=== PATIENT | male | born 1970 | race Caucasian/White ===

== ENCOUNTER 2018-08-11 11:37 | Emergency (ER) | payer MEDICAID ==
[~2018-08-11] VITALS: Wt 100.0 kg
[2018-08-11 11:40] VITALS: BP 159/89; PULSE 90; RESP 16
[2018-08-11] MEDS ORDERED: KETOROLAC 60 MG INJ IM STA (11:51)
[2018-08-11] MEDS ORDERED: PROMETHAZINE/CODEINE 5ML CUP PO ONE (12:00)
[2018-08-11] MEDS ORDERED: D-ME473S2 PO (12:33)
[2018-08-11] MEDS ORDERED: OSEL75CA23 PO (12:33)
[2018-08-11] MEDS ORDERED: IBUP-1542 PO (12:33)
--- NOTE | 2018-08-11 12:36 | ERD ---
ER Documentation Chief Complaint Chief Complaint BODY ACHES,CHILLS ,COUGH X 4 DAYS HPI This 48-year-old male presents with 4-day history of cough, fever and body aches. He has no vomiting, abdominal pain, chest pain. ROS All systems reviewed and are negative except as per history of present illness. Medications Home Meds Active Scripts Oseltamivir Phosphate* (Tamiflu*) 75 Mg Capsule, 75 MG PO BID for 5 Days, CAP Prov:CHAYO BARRON MD 08/11/18 Dextromethorphan Hb-Promethazine Hcl* (Promethazine DM* Syrup) 473 Ml Syrup, 5 ML PO Q6 PRN for COUGH for 5 Days, ML Prov:CHAYO BARRON MD 08/11/18 Ibuprofen* (Motrin*) 600 Mg Tab, 600 MG PO Q6, #20 TAB Prov:CHAYO BARRON MD 08/11/18 Allergies Allergies: Coded Allergies: No Known Allergy (Unverified , 08/11/18) PMhx/Soc Medical and Surgical Hx: pt denies Medical Hx, pt denies Surgical Hx Hx Alcohol Use: No Hx Substance Use: No Hx Tobacco Use: No Smoking Status: Never smoker FmHx Family History: No diabetes, No coronary disease, No other Physical Exam Vitals Vital Signs Date Temp Pulse Resp B/P (MAP) Pulse Ox O2 O2 Flow FiO2 Time Delivery Rate 08/11/18 99.1 90 16 159/89 97 11:40 (112) Physical Exam Const: No acute distress Head: Atraumatic Eyes: Normal Conjunctiva ENT: Normal External Ears, Nose and Mouth. TMs and oropharynx normal. Neck: Full range of motion. No meningismus. Resp: Clear to auscultation bilaterally. Dry coarse cough without rales, wheezing or retractions. Cardio: Regular rate and rhythm, no murmurs Abd: Soft, non tender, non distended. Normal bowel sounds Skin: No petechiae or rashes Back: No midline or flank tenderness Ext: No cyanosis, or edema Neur: Awake and alert Psych: Normal Mood and Affect Results 24 hrs Current Medications Medications Dose Sig/Jojo Start Time Status Last (Trade) Ordered Route PRN Stop Time Admin Dose Reason Admin Ketorolac 60 mg ONCE STAT 08/11/18 DC 08/11/18 Tromethamine IM 11:51 08/11/18 12:07 (Toradol) 11:52 Promethazine 10 ml ONCE ONCE 08/11/18 DC 08/11/18 HCl/ PO 12:00 08/11/18 12:07 Codeine 12:01 (Phenergan/ Codeine) Procedures/MDM Patient was given Toradol and 10 mils promethazine with codeine. Chest X-ray 1V Interpreted by me: Soft Tissue: No acute abnormalities Bones: No acute abnormalities Mediastinum/Cardiac Silhouette/Lungs: No acute abnormalities. Impression- normal 1 view chest x-ray Patient presents with fever, body aches, your symptoms suggestive of likely influenza. We will treat empirically with promethazine DM, ibuprofen, Tamiflu, primary care follow-up and return precautions. He has no evidence of hypoxemia, respiratory distress, pneumonia, abdominal pain or chest pain. The patient was stable with no new complaints during the ER course. Clinically, there is no current evidence to suggest meningitis, sepsis, acute abdomen, pneumonia, stroke, acute coronary syndrome, pulmonary embolism, aortic dissection or any other emergent condition appearing to require further evaluation or hospitalization. Patient counseled regarding my diagnostic impression and care plan. Prior to discharge all questions answered. Pt agrees with treatment plan and understands strict return precautions. Pt is instructed to follow up with primary care provider within 24-48 hours. Precautionary instructions provided including instructions to return to the ER if not improving or for any worsening or changing symptoms or concerns. Departure Diagnosis: Primary Impression: Influenza-like symptoms Condition: Stable Patient Instructions: Influenza (Adult) Additional Instructions: Influenza may last up to a week. Recheck for new or worsening symptoms with primary care doctor. CHAYO BARRON MD Aug 11, 2018 12:36
== END 2018-08-11 13:00 | disposition home or self-care (01) ==
LOC: FTE 11:37
DX: J11.1 Influenza due to unidentified influenza virus with other respiratory manifestations (principal)
CPT/HCPCS: 71045; 96372; J1885; Z7502; Z7610